=== PATIENT | male | born 1990 | race Caucasian/White ===

== ENCOUNTER 2016-11-22 14:49 | Inpatient (IN) | payer OTHER ==
[~2016-11-22] VITALS: Ht 180.3 cm; Wt 70.3 kg
[~2016-11-22 14:49] MED LIST: ALBU18HF2 INH; Baclofen PO; CLON0.1T14 PO; DICY20TA28 PO; DIPH50CA37 PO; Gabapentin PO; HYDR-3895 PO; Ibuprofen PO
[2016-12-16 09:00] VITALS: BP 110/63
[2016-12-16] MEDS ORDERED: ONDANSETRON ODT 4 MG TAB.RAPDIS SL PRN (09:45)
[2016-12-16] MEDS ORDERED: DICYCLOMINE HCL 20 MG TABLET PO PRN (09:45)
[2016-12-16] MEDS ORDERED: MIRALAX 17 GM POWD.PACK PO PRN (09:45)
[2016-12-16] MEDS ORDERED: IBUPROFEN 600 MG TABLET PO PRN (09:45)
[2016-12-16] MEDS ORDERED: ALBUTEROL SULFATE 8 GM HFA.AER.AD INH PRN (09:45)
[2016-12-16] MEDS ORDERED: BUPRENORPHINE HCL 2 MG TAB.SUBL SL PRN (09:45)
[2016-12-16] MEDS ORDERED: ACETAMINOPHEN 325 MG TABLET PO PRN (09:45)
[2016-12-16] MEDS ORDERED: MAG HYDROX/AL HYDROX/SIMETH 30 ML LIQUID UDC PO PRN (09:45)
[2016-12-16] MEDS ORDERED: ONDANSETRON 4 MG/2 ML VIAL IM PRN (09:45)
[2016-12-16] MEDS ORDERED: LOPERAMIDE HCL 2 MG CAPSULE PO PRN ×2 (09:45)
[2016-12-16] MEDS ORDERED: diphenhydrAMINE 50 MG CAPSULE PO PRN (09:45)
[2016-12-16] MEDS ORDERED: MAGNESIUM HYDROXIDE 30 ML LIQUID UDC PO PRN (09:45)
[2016-12-16] MEDS ORDERED: HYDROXYZINE PAMOATE 25 MG CAPSULE PO PRN (09:45)
[2016-12-16] MEDS ORDERED: CLONIDINE HCL 0.1 MG TABLET PO PRN (09:45)
--- NOTE | 2016-12-16 10:35 | NUR ---
Admission Note VS: BP- 110/63 HR- 83 O2- 96% RR-16 Temp- 97.5 Pain 0/10 Height: 5'11" Weight: 155 lbs Allergies: LILIAN Patient is a 26 year old male admitted to [facility] on 12/16/16 at 0930. Pt is under the care of Dr. Toussaint for heroin dependence. Pt denies suicidal and homicidal ideations at this time. Pt denies being hospitalized in the last 30 days. Pt denies chest pain and SOB. Upon assessment, patient has abrasions to right side of face,back of head, bilat hands, and upper back. Patient states he was running away from police and fell into a fence and got all of these abrasions. Cows 5 upon admission. Pt is AOx4 and able to answer questions necessary for admission process. Patient appears with flat affect and congruent mood. Pt is a full code. VS WNL, Regular diet. Pt denies seizure history. Pt denies having PCP. Breathing is even and unlabored, O2 96% room air. Pt ambulates with steady gait. Pt reports not sleeping last night and feeling very tired. Pt states he has a BM about every other day. Pt reports he is currently living at his friend's house. Pt smokes about a pack of cigarretes per day, Addendum: 12/16/16 at 1047 by KWAN LOW RN but is not interested in quitting at this time. Smoking cessation education still provided to pt. All needs have been met. Pt has been oriented to the room, unit, and staff. All safety measures are in place per hospital policy. Bed in lowest position, side rails up x2, call light within reach. Will Continue to monitor. Substance Abuse: Heroin: 3 grams daily for 8 months. Last used on 12/15/16 2.5 grams.
[2016-12-16] MEDS ORDERED: ALBUTEROL SULFATE 2.5 MG/3 ML NEBU NEB PRN (11:15)
[2016-12-16 11:17] LABS: BASOPHILS # (AUTO) 0.1 K/uL (0.0-0.2); BASOPHILS % (AUTO) 0.8 % (0.0-2.0); EOSINOPHILS # (AUTO) 0.5 K/uL (0.0-0.7); HEMATOCRIT 44.1 % (40.0-50.0); HEMOGLOBIN 15.4 g/dL (14.0-18.0); LYMPHOCYTES # (AUTO) 1.5 K/uL (0.8-4.8); LYMPHOCYTES % (AUTO) 21.4 % (20.5-51.5); MEAN CORPUSCULAR HEMOGLOBIN 30.9 uug (27.0-31.0); MEAN CORPUSCULAR HGB CONC 35 g/dL (32.0-37.0); MEAN CORPUSCULAR VOLUME 88.4 fL (82.0-92.0); MONOCYTES # (AUTO) 0.8 K/uL (0.1-1.30); MONOCYTES % (AUTO) 10.9 % (0.0-11.0); NEUTROPHILS # (AUTO) 4.1 K/uL (1.8-8.9); NEUTROPHILS % (AUTO) 59.9 % (38.5-71.5); PLATELET COUNT (AUTO) 202 K/uL (150-450); RED BLOOD CELL COUNT(AUTO) 4.99 MIL/uL (4.70-6.10)
[2016-12-16 11:28] LABS: ALANINE AMINOTRANSFERASE 179 U/L (16-63); ALBUMIN 3.3 g/dL (3.4-5.0); ALKALINE PHOSPHATASE 111 U/L (50-136); ASPARTATE AMINOTRANSFERASE 105 U/L (15-37); CALCIUM 8.7 mg/dL (8.5-10.1); CHLORIDE 100 mmol/L (98-107); GFR 92 mL/min (>60); GLUCOSE 89 mg/dL (74-106); POTASSIUM 3.1 mmol/L (3.5-5.1); SODIUM SERUM 138 mmol/L (136-145); TOTAL PROTEIN, SERUM 6.9 g/dL (6.4-8.2); UREA NITROGEN, BLOOD 20 mg/dL (7-18)
[2016-12-16 11:36] LABS: CARBON DIOXIDE 35 mmol/L (21-32)
[2016-12-16 11:38] LABS: THYROID STIMULATING HORMONE 0.668 mIU/mL (0.358-3.740)
--- NOTE | 2016-12-16 11:58 | NUR ---
LABS K+= 3.[address] Toussaint made aware.
[2016-12-16 12:00] VITALS: BP 101/57
[2016-12-16 12:08] LABS: ETHANOL < 5 MG/DL (0-0)
[2016-12-16] MEDS: NEOMY/BACITRAC/POLYMI OINT 28.35 GM TUBE TOP SCH ×2 (12:16→16:38)
--- NOTE | 2016-12-16 12:30 | NUR ---
IV START IV line started per Dr order. 22 gauge placed Right AC. No site complications. IV site flushed and secured with transparent dressing.
[2016-12-16 12:58] LABS: HIV-1 p24 ANTIGEN NON REACTIVE (NONREACTIVE); HIV-1/2 ANTIBODY NON REACTIVE (NONREACTIVE)
[2016-12-16] MEDS: POTASSIUM CHLORIDE 20 MEQ in IV D5 1/2 NS 1000 ML 1,000 ML IV SCH ×2 (12:59→21:13)
--- NOTE | 2016-12-16 14:00 | NUR ---
COWS DEFERRED PATIENT SLEEPING. RESPIRATIONS EVEN AND UNLABORED. RR 14. BED LOCKED AND IN LOWEST POSITION. CALL LIGHT IN REACH. WILL CONTINUE TO MONITOR.
[2016-12-16] MEDS: GABAPENTIN 300 MG CAPSULE PO SCH ×2 (14:40→20:52)
[2016-12-16 16:00] VITALS: BP 101/54
--- NOTE | 2016-12-16 18:40 | NUR ---
END OF SHIFT Admitted pt this AM for heroin dependence. Patient has been sleeping since arrival to unit and states he did not get sleep last night and is very tired. Pt is aox4 when awake. Pt is compliant with medications and vital signs. COWS 5 on admission, other COWS deferred due to patient being asleep. Patient unable to provide UDS since admission and is aware he needs to provide us with it. Endorsed this to oncoming nurse. Patient currently sleeping with respirations even and unlabored. RR 14. Bed locked and in lowest position. Call hancock in reach. Will pass report to night nurse.
[2016-12-16 20:00] VITALS: BP 95/64
--- NOTE | 2016-12-16 20:00 | NUR ---
START OF SHIFT NOTE PATIENT IN THE ROOM. RESTING. PATIENT REPORTS GENERALIZED BODY ACHES . NO N/V, ANXIOUS, STUFFY NOSE AND RESTLESS LEGS. RECEIVED REPORT FROM DAY SHIFT NURSE. PATIENT IS A 26 YEAR OLD MALE, NEWLY ADMITTED ON 12/16/16 FOR SUBSTANCE DEPENDENCE. PATIENT IS FULL CODE, REGULAR DIET AND NO KNOWN ALLERGY. PATIENT WAS PLACED ON 4 DAYS SUBUTEX TAPER TO START TOMORROW. PATIENT DENIES ANY PAST MEDICAL HISTORY. PATIENT INJECTS 3 GRAMS FOR 8 MONTHS. ON FALL PRECAUTION. PATIENT WITH MULTIPLE ABRASION ON FACE,BACK OF NECK AND LEFT HAND. PATIENT IS ON POTASSIUM CHLORIDE 20 Meq in IV D5 1/2 NS 1000 ML AT 125 MLS/HR ON RIGHT AC. POTASSIUM LEVEL 3.1. PATIENT DID NOT REQUIRE ANY PRN MEDICATION DURING THE DAY. LAST COWS 5. SAFETY MEASURES IN PLACE. CALL LIGHT IN REACH. WILL CONTINUE TO MONITOR.
[2016-12-16] MEDS: METHOCARBAMOL 750 MG TABLET PO PRN (20:52)
--- NOTE | 2016-12-16 20:52 | NUR ---
PRN BENADRYL, ROBAXIN, VISTARIL ADMINISTRATION PATIENT REQUEST FOR SLEEP AID, C/O RESTLESS LEGS AND ANXIETY. PRN ROBAXIN, BENADRYL AND VISTARIL GIVEN. WILL MONITOR FOR EFFECTIVENESS.
--- NOTE | 2016-12-16 22:00 | NUR ---
PRN VISTARIL/BENADRYL AND ROBAXIN RE-ASSESSMENT PATIENT IN BED ASLEEP. RESPIRATION EVEN AND UNLABORED. NO S/S OF DISTRESS. WILL CONTINUE TO MONITOR
[2016-12-17] VITALS (7 sets, daily range): BP systolic 90–108; BP diastolic 47–62
[2016-12-17] MEDS: POTASSIUM CHLORIDE 20 MEQ in IV D5 1/2 NS 1000 ML 1,000 ML IV SCH (05:37)
--- NOTE | 2016-12-17 07:09 | NUR ---
END OF SHIFT NOTE PATIENT REPORTS GENERALIZED BODY ACHES . NO N/V, ANXIOUS, STUFFY NOSE AND RESTLESS LEGS. RECEIVED REPORT FROM DAY SHIFT NURSE. PATIENT IS A 26 YEAR OLD MALE, NEWLY ADMITTED ON 12/16/16 FOR SUBSTANCE DEPENDENCE. PATIENT IS FULL CODE, REGULAR DIET AND NO KNOWN ALLERGY. PATIENT WAS PLACED ON 4 DAYS SUBUTEX TAPER TO START TODAY. PATIENT DENIES ANY PAST MEDICAL HISTORY. PATIENT INJECTS 3 GRAMS FOR 8 MONTHS. ON FALL PRECAUTION. PATIENT WITH MULTIPLE ABRASION ON FACE,BACK OF NECK AND LEFT HAND. PATIENT IS ON POTASSIUM CHLORIDE 20 Meq in IV D5 1/2 NS 1000 ML AT 125 MLS/HR ON RIGHT AC. POTASSIUM LEVEL 3.1. PATIENT IN ROOM MOST OF THE SHIFT. PATIENT WAS GIVEN PRN BENADRYL FOR SLEEP, ROBAXIN RESTLESS LEGS AND VISTARIL FOR ANXIETY AT 2051, ALL EFFECTIVE. LAST COWS 1. SAFETY MEASURES IN PLACE. CALL LIGHT IN REACH. WILL CONTINUE TO MONITOR. SLEPT 10 HOURS. FLUID INTAKE 250 ML. VOIDED X 0 .NO BM.
--- NOTE | 2016-12-17 07:27 | NUR ---
END OF SHIFT NOTE PATIENT ALERT AND ORIENTED X 4. RESPIRATION EVEN AND UNLABORED. PATIENT C/O ANXIETY BUT MEDICATION IS WORKING WELL IN CONTROLLING HIS WITHDRAWAL SYMPTOMS. SWEATING. NO N/V.PATIENT IS ON 2ND DAY OF HIS 5 DAY SUBUTEX AND 5 DAY VALIUM TAPER FOR OPIATE/ BENZO DEPENDENCE.PATIENT IS ATTENDING AND PARTICIPATING IN GROUPS. COMPLIANT WITH MEDICATIONS AND TREATMENT PLAN. PATIENT DID NOT REQUIRE ANY PRN MEDICATION DURING THE DAY. LAST CIWA 1 AND COWS 1. SKIN INTACT. ON FALL/SEIZURE PRECAUTION. SAFETY MEASURES IN PLACE. CALL LIGHT IN REACH. WILL CONTINUE TO MONITOR. SLEPT 6 HOURS. FLUID INTAKE 1,350 ML. VOIDED X 2. NO BM. Addendum: 12/17/16 at 0763 by KALEB ALVARADO LVN ERROR :CHARTING IS FOR ANOTHER PATIENT
--- NOTE | 2016-12-17 07:53 | NUR ---
START OF SHIFT Pt 26 y/o male admitted for substance abuse. Pt received in room on bed with eyes closed resting, but easily arousable to name. Perrla. Skin warm and slightly moist to touch. Respirations even and unlabored. Peripheral IV on right forearm 22g intact and in place with no redness or infiltration noted, and is infusing K+ D5 1/2 @ 125mL/hr and is tolerating well. Pt was able to provide to urine for UDS. It was reported that pt slept for 10 hours last night. Bed on lowest position with side rails x2 up for safety. Call light within reach. No distress noted at this time.
[2016-12-17 08:29] LABS: ALBUMIN 2.8 g/dL (3.4-5.0); BILIRUBIN,DIRECT 0.1 mg/dL (0.0-0.2); BILIRUBIN,TOTAL 0.6 mg/dL (0.2-1.0); CALCIUM 8.3 mg/dL (8.5-10.1); CREATININE 0.9 mg/dL (0.6-1.3); MAGNESIUM 1.9 mg/dL (1.8-2.4); PHOSPHOROUS 2.9 mg/dL (2.5-4.9); TOTAL PROTEIN, SERUM 6.2 g/dL (6.4-8.2)
[2016-12-17] MEDS ORDERED: TUBERCULIN,PURIF.PROT.DERIV. 5 TU/0.1 ML TEST ID ONE (09:00)
[2016-12-17] MEDS: NEOMY/BACITRAC/POLYMI OINT 28.35 GM TUBE TOP SCH ×2 (09:00→17:21)
[2016-12-17 09:07] LABS: HCV AB >11.0 s/co ratio (0.0-0.9); HEPATITIS B CORE AB, IgM Negative (Negative); HEPATITIS B SURFACE AG Negative (Negative)
[2016-12-17 09:36] LABS: *AMPHETAMINE, URINE POSITIVE (NEGATIVE); *BARBITURATE, URINE NEGATIVE (NEGATIVE); *CANNABINOID, URINE NEGATIVE (NEGATIVE); *COCCAINE, URINE NEGATIVE (NEGATIVE); *OPIATE, URINE POSITIVE (NEGATIVE); *PHENCYCLIDINE SCREEN,URINE NEGATIVE (NEGATIVE)
[2016-12-17] MEDS: MULTIVITAMINS,THERAPEUTIC TABLET PO SCH (10:02)
[2016-12-17] MEDS: GABAPENTIN 300 MG CAPSULE PO SCH ×3 (10:02→20:57)
[2016-12-17] MEDS: BUPRENORPHINE HCL 2 MG TAB.SUBL SL SCH ×3 (10:02→20:58)
--- NOTE | 2016-12-17 11:23 | NUR ---
1:1 Pt observed with slightly unsteady gait. Pt also stated he felt dizzy and lightheaded after getting up from bed. Pt seen by Dr. Toussaint with new orders for 1:1 sitter to monitor for safety.
[2016-12-17] MEDS: IV NS 1000 ML 1,000 ML IV PRN (14:30)
[2016-12-17] MEDS: METHOCARBAMOL 750 MG TABLET PO PRN (17:51)
--- NOTE | 2016-12-17 17:54 | NUR ---
PRN Pt states 7/10 pain of right arm. Robaxin po prn per MD order given and tolerated well.
--- NOTE | 2016-12-17 18:00 | NUR ---
END OF SHIFT Pt 26 y/o male admitted for substance dependence. Pt alert and oriented to name, place, and time. Perrla. Respirations even and unlabored. Skin warm and slightly moist to touch. Bilateral hand tremors noted. Pt states he had episodes of chills and sweats throughout the day. Peripheral IV on right arm 22g intact, patent, and in place, with no redness or infiltration noted, and is infusing NS @120mL/hr, and is tolerating well. Pt with sitter 1:1 to monitor for safety. Pt observed in room throughout the day. Pt did not attend group activity. Pt medication compliant and tolerated well. Bed on lowest position with side rails x2 up for safety. Call light within reach. No distress noted at this time.
[2016-12-17] MEDS: ESCITALOPRAM OXALATE 10 MG TABLET PO SCH (18:23)
--- NOTE | 2016-12-17 19:55 | NUR ---
START OF SHIFT Received report from day shift nurse. Pt is lying in bed resting with a 1:[address] for safety due to unsteady gait. He is a 26 yo male admitted to [facility] on 12/16 for Opiate dependence. Pt is A&O x4 and ambulatory with minimal assistance. NKA, full code, regular diet. He has a 22 gauge IV to the right forearm that is patent and intact. He is receiving IV fluids for rehydration. He has a medical history of hepatitis C. He has a raised painful area on the right wrist. MD aware. PO abx ordered. On admission he admitted to using heroin IV 3 grams per day for 8 months. He reports left wrist pain, generalized body aches, headache, nasal stuffiness. Pt has moist, flush skin and tremors that can be felt. He started a 5 day subutex taper on 12/16 for the management of withdrawal symptoms. Fall precautions in place. Bed is down with call light in reach.
[2016-12-17] MEDS: DOXYCYCLINE HYCLATE 100 MG TABLET PO SCH (20:57)
--- NOTE | 2016-12-17 21:00 | NUR ---
PRN Motrin administration Pt reports right wrist pain r/t abscess and headache. PRN Motrin administered.
--- NOTE | 2016-12-17 22:00 | NUR ---
PRN Motrin reassessment PRN Motrin effective. Pt reports headache is relieved and wrist pain is mild. He denies the need for any other medication
[2016-12-18] VITALS: BP 104/50
[2016-12-18] MEDS: IV NS 1000 ML 1,000 ML IV PRN (00:19)
[2016-12-18 04:00] VITALS: BP 109/67
--- NOTE | 2016-12-18 07:12 | NUR ---
END OF SHIFT Report provided to day shift nurse. Pt is lying in bed resting with a 1:[address] for safety due to unsteady gait. He is a 26 yo male admitted to [facility] on 12/16 for Opiate dependence. Pt is A&O x4 and ambulatory with minimal assistance. NKA, full code, regular diet. He has a 22 gauge IV to the right wrist that is patent and intact. He is receiving IV NS @ 120mL/hr for hydration. He has a medical history of hepatitis C. He has a raised painful area on the right wrist. MD aware. PO abx ordered. On admission he admitted to using heroin IV 3 grams per day for 8 months. Pt started a 5 day subutex taper on 12/16 for the management of withdrawal symptoms. PRN Motrin administered. Last COWS 6. He drank 855mL and received IV NS @ 120mL/hr. Pt slept for 8 hours. Fall precautions in place. Bed is down with call light in reach.
--- NOTE | 2016-12-18 07:15 | NUR ---
Start of Shift Received report from operations supervisor 2nd shift nurse. Pt is a 26 year old male admitted to the [facility] on 12/16/16 for Opiate dependence. Pt is full code regular diet, regular diet on fall precautions denies any food or drug allergies. Pt placed on a 5 day Subutex taper tolerating well. He has a 22 gauge IV to the right forearm that is patent and intact. He is receiving IV fluids for rehydration. He has PMH of hepatitis C. He has a raised painful area on the right wrist. aware. Pt is on PO antibiotics. Pt also has scabs located on right cheek and right side of the neck. Pt received PRN Motrin at night which was effective per operations supervisor 2nd shift nurse. Pt slept a total of 8 hours last night. Pt is currently in his room laying in bed watching TV. All safety measures in place per hospital policy. Bed in lowest position, side rails up x2, call-light within reach. Will continue to monitor and provide support.
[2016-12-18] MEDS: MULTIVITAMINS,THERAPEUTIC TABLET PO SCH (08:28)
[2016-12-18] MEDS: METHOCARBAMOL 750 MG TABLET PO PRN (08:28)
[2016-12-18] MEDS: DOXYCYCLINE HYCLATE 100 MG TABLET PO SCH ×2 (08:28→20:53)
[2016-12-18] MEDS: GABAPENTIN 300 MG CAPSULE PO SCH ×3 (08:28→20:53)
[2016-12-18] MEDS: ESCITALOPRAM OXALATE 10 MG TABLET PO SCH (08:28)
[2016-12-18 08:32] VITALS: BP 115/72
[2016-12-18] MEDS: NEOMY/BACITRAC/POLYMI OINT 28.35 GM TUBE TOP SCH ×2 (08:32→17:00)
[2016-12-18] MEDS ORDERED: BUPRENORPHINE HCL 2 MG TAB.SUBL SL SCH (09:00)
--- NOTE | 2016-12-18 10:53 | NUR ---
communication Upon assessment Dr. Toussaint placed an ordered to discontinue patient from the 1:1 as well as his saline lock. All orders completed, pt is no longer on a 1:1 and his IV has been removed. All needs met all safety measures in place will continue to monitor.
[2016-12-18 12:00] VITALS: BP 119/65
[2016-12-18] MEDS: FLUTICASONE PROP NASAL SPRAY 16 GM BOTTLE NS SCH (13:50)
[2016-12-18] MEDS: CLONIDINE HCL 0.1 MG TABLET PO SCH ×2 (14:13→20:53)
[2016-12-18] MEDS: BACLOFEN 10 MG TABLET PO SCH ×2 (14:13→20:54)
[2016-12-18] MEDS: BUPRENORPHINE HCL 2 MG TAB.SUBL SL SCH ×2 (14:14→20:54)
[2016-12-18] MEDS: DICYCLOMINE HCL 20 MG TABLET PO SCH ×2 (15:00→20:53)
[2016-12-18 16:00] VITALS: BP 106/60
--- NOTE | 2016-12-18 19:15 | NUR ---
START OF SHIFT Received 26 year old male patient admitted on 12/16/16 for Heroin dependency. Pt is full code with NKA. He reports a PMHx of Hep C. He reports using Heroin IV 3 gram daily for 6 months. Last dose was 2.5 gram on 12/15/16. He is placed on 5 day Subutex taper and tolerating well. Per endorsement, pt with right wrist abscess and being treated with PO ATB. He did not receive or request PRN medications. Pt is alert and oriented x4, breathing is even and unlabored, safety measures in place. Will continue to monitor.
--- NOTE | 2016-12-18 19:23 | NUR ---
End of Shift Pt is a 26 year old male admitted to [facility] on 12/16/16 for Opiate dependence. Pt is full code regular diet, on fall precautions denies any food or drug allergies. Pt placed on a 5 day Subutex taper tolerating well. His 22 gauge IV to the right forearm was discontinued . He has PMH of hepatitis C. He has a raised painful area on the right wrist. MD aware. Pt is on PO antibiotics. Pt also has scabs located on right cheek and right side of the neck. Pts 1:1 has been discontinued per MD order. Pt did not receive any PRN medications during the day. Treatment plan tolerated well by the patient as evidenced by ptst last COWS score of 4 which was taken at 1600. Pt participated in some activities and groups. Pt ate all of his meals. Pt remains compliant with the treatment plan. Pts vital signs within normal limits, A/Ox4, denies chest pain. Respirations even unlabored, lungs clear upon auscultation abdomen soft and non- distended. Pt denies nausea, vomiting and diarrhea. Pt total fluid intake was 1596ml with 2 voids and 1 stool. Safety measures in place, call light within reach. All pertinent information discussed with internet marketing consultant, endorsement given to internet marketing consultant nurse.
[2016-12-18 20:00] VITALS: BP 97/64
[2016-12-19] VITALS: BP 95/60
[2016-12-19 04:00] VITALS: BP 101/54
--- NOTE | 2016-12-19 04:00 | NUR ---
COWS DEFERRED COWS deferred d/t order is Q4H while awake. Pt noted to be lying in bed with eyes closed and is asleep. Respirations 16, breathing is even and unlabored, safety measures in place. Will continue to monitor.
--- NOTE | 2016-12-19 07:10 | NUR ---
END OF SHIFT Pt remained stable. Pt had uneventful night. He did not receive or request PRN medications. Pt continues on PO antibiotic for right wrist abscess and tolerating well. He slept a total of 8 hrs, Intake: 500 mL, Void: x2, BM:0. COWS:4. Pt remains alert and oriented x4, breathing is even and unlabored, safety measures in place. Will endorse to oncoming shift.
--- NOTE | 2016-12-19 07:11 | NUR ---
Start of Shift Patient Received from date night caregiver nurse. Patient is a 60 year old male, admitted on 12/13/16 for ETOH Dependence, under the care of Dr. Toussaint. Pt is full code regular diet on fall and seizure precautions denies any food or drug allergies. Patient is currently receiving a 5 day Ativan taper tolerating well. Reports PMH of Depression, Anxiety, Anemia, Obesity, Shingles less than one month ago, ARF, Insomnia, Cholelithiasis, and lactose intolerance. Treatment plan tolerated well by the patient as evidenced by pt's last CIWA score of 5 which was taken at 0400. Pt received PRN Motrin and Tylenol for general body aches and tooth pain which were effective per date night caregiver nurse. Pt has a new scheduled medication Lidoderm patch that's placed on his left upper back and to be removed HS. Pt is currently in his room laying in bed watching TV. All safety measures in place per hospital policy. Bed in lowest position, side rails up x2, call-light within reach. Will continue to monitor and provide support. Addendum: 12/19/16 at 0801 by ALEXIS GARCIA RN WRONG PATIENT, ERROR IN CHARTING.
--- NOTE | 2016-12-19 07:12 | NUR ---
Start of Shift Received report from fox farmer nurse. Pt is a 26 year old male admitted to [facility] on 12/16/16 for Opiate dependence. Pt is full code regular diet, regular diet on fall precautions denies any food or drug allergies. Pt placed on a 5 day Subutex taper tolerating well. Reports PMH of hepatitis C. He has abscess on his right wrist. aware. Pt is currently on PO antibiotics. Pt also has scabs located on his right cheek and right side of the neck. Pt did not received PRN medications last night.Treatment plan tolerated well by the patient as evidenced by pt's last COWS score of 5 which was taken at 0400. Pt slept a total of 8 hours last night. Pt is currently in his room laying in bed watching TV. All safety measures in place per hospital policy. Bed in lowest position, side rails up x2, call-light within reach. Will continue to monitor and provide support.
[2016-12-19 08:00] VITALS: BP 113/61
[2016-12-19] MEDS: GABAPENTIN 300 MG CAPSULE PO SCH ×2 (09:34→15:19)
[2016-12-19] MEDS: CLONIDINE HCL 0.1 MG TABLET PO SCH ×3 (09:34→21:50)
[2016-12-19] MEDS: MULTIVITAMINS,THERAPEUTIC TABLET PO SCH (09:34)
[2016-12-19] MEDS: FLUTICASONE PROP NASAL SPRAY 16 GM BOTTLE NS SCH (09:34)
[2016-12-19] MEDS: BACLOFEN 10 MG TABLET PO SCH ×3 (09:35→21:50)
[2016-12-19] MEDS: BUPRENORPHINE HCL 2 MG TAB.SUBL SL SCH ×3 (09:35→21:56)
[2016-12-19] MEDS: ESCITALOPRAM OXALATE 10 MG TABLET PO SCH (09:35)
[2016-12-19] MEDS: DICYCLOMINE HCL 20 MG TABLET PO SCH ×3 (09:35→21:49)
[2016-12-19] MEDS: DOXYCYCLINE HYCLATE 100 MG TABLET PO SCH ×2 (09:35→21:50)
[2016-12-19] MEDS: NEOMY/BACITRAC/POLYMI OINT 28.35 GM TUBE TOP SCH ×2 (09:36→17:00)
[2016-12-19 12:00] VITALS: BP 124/70
[2016-12-19] MEDS ORDERED: BUPRENORPHINE HCL 2 MG TAB.SUBL SL ONE (13:00)
[2016-12-19 16:00] VITALS: BP 119/72
[2016-12-19] MEDS: BOOST PLUS 237 ML LIQUID (RICH CHOCOLATE) PO SCH (18:27)
--- NOTE | 2016-12-19 19:03 | NUR ---
End of Shift Pt is a 26 year old male admitted to [facility] on 12/16/16 for Opiate dependence. Pt placed on a 5 day Subutex taper tolerating well. He has PMH of hepatitis C. He has a raised painful area on the right wrist. aware. Pt is on PO antibiotics. Pt also has scabs located on right cheek and right side of the neck he has triple antibiotic cream for the scabs.Pt did not receive any PRN medications during the day pt received onetime order of Subutex 4 mg.Treatment plan tolerated well by the patient as evidenced by pt's last COWS score of 3 which was taken at 1600. Pt participated in some activities and groups. Pt ate all of his meals. Pt remains compliant with the treatment plan. Pts vital signs within normal limits, A/Ox4, denies chest pain. Respirations even unlabored, lungs clear upon auscultation abdomen soft and non- distended. Pt denies nausea, vomiting and diarrhea. Pt total fluid intake was 1355ml with 3 voids and 1 stool. Safety measures in place, call light within reach. All pertinent information discussed with veterinary hospital shift lead, endorsement given to veterinary hospital shift lead nurse.
--- NOTE | 2016-12-19 19:15 | NUR ---
START OF SHIFT Received 26 year old male patient admitted on 12/16/16 for Heroin dependency. Pt is full code with NKA. He reports a PMHx of Hep C. He is placed on 5 day Subutex taper started on 12/16/16 and tolerating well. Pt with right wrist abscess being treated with PO ATB. Per endorsement, he received a one time Subutex 4 mg, which was effective. Pt is alert and oriented x4, breathing is even and unlabored, safety measures in place. Will continue to monitor.
[2016-12-19 20:00] VITALS: BP 106/64
[2016-12-19] MEDS ORDERED: GABAPENTIN 300 MG CAPSULE PO SCH (21:00)
[2016-12-20] VITALS: BP 95/63
[2016-12-20 04:00] VITALS: BP 105/61
--- NOTE | 2016-12-20 04:00 | NUR ---
COWS DEFERRED COWS deferred d/t order is Q4H while awake. Pt noted to be lying in bed with eyes closed and is asleep. Respirations 16, breathing is even and unlabored, safety measures in place. Will monitor.
--- NOTE | 2016-12-20 07:06 | NUR ---
END OF SHIFT Pt remained stable and had uneventful night. He continues on Subutex taper and tolerating well. He did not receive or request for PRN medications during shift. He slept a total of 8 hrs, intake:560 mL void: x1 BM: 0 COWS: 4 at 2200. Pt remains alert and oriented x4, breathing is even and unlabored, safety measures in place. Endorsed to oncoming shift.
[2016-12-20 08:00] VITALS: BP 103/61
--- NOTE | 2016-12-20 08:00 | NUR ---
START OF SHIFT Pt 26 y/o male admitted for substance dependence. Pt received in room with eyes closed resting, but easily arousable to name. Pt alert and oriented to name, place, and time. Perrla. Skin warm and slightly moist to touch. Respirations even and unlabored. Bilateral hand tremors noted slightly. It was reported that pt slept for 8 hours last night. Pt is on a 5 day subutex taper. Bed on lowest position with side rails x2 up for safety. Call light within reach. No distress noted at this time.
[2016-12-20] MEDS: BOOST PLUS 237 ML LIQUID (RICH CHOCOLATE) PO SCH ×3 (08:47→17:00)
[2016-12-20] MEDS: BACLOFEN 10 MG TABLET PO SCH ×3 (08:48→21:08)
[2016-12-20] MEDS: DOXYCYCLINE HYCLATE 100 MG TABLET PO SCH ×2 (08:48→21:09)
[2016-12-20] MEDS: ESCITALOPRAM OXALATE 10 MG TABLET PO SCH (08:48)
[2016-12-20] MEDS: GABAPENTIN 300 MG CAPSULE PO SCH ×3 (08:49→21:08)
[2016-12-20] MEDS: CLONIDINE HCL 0.1 MG TABLET PO SCH ×3 (08:49→21:08)
[2016-12-20] MEDS: MULTIVITAMINS,THERAPEUTIC TABLET PO SCH (08:49)
[2016-12-20] MEDS: DICYCLOMINE HCL 20 MG TABLET PO SCH ×3 (08:49→21:09)
[2016-12-20] MEDS: FLUTICASONE PROP NASAL SPRAY 16 GM BOTTLE NS SCH (08:50)
[2016-12-20] MEDS: NEOMY/BACITRAC/POLYMI OINT 28.35 GM TUBE TOP SCH ×2 (08:50→17:00)
[2016-12-20] MEDS ORDERED: BUPRENORPHINE HCL 2 MG TAB.SUBL SL SCH ×2 (09:00→15:00)
--- NOTE | 2016-12-20 10:00 | NUR ---
NSG ENTRY Pt observed in room watching television on bed. No distress noted at this time.
--- NOTE | 2016-12-20 11:00 | NUR ---
NSG ENTRY pt seen by Dr. Toussaint.
[2016-12-20 12:00] VITALS: BP 102/73
[2016-12-20 16:00] VITALS: BP 108/47
--- NOTE | 2016-12-20 18:29 | NUR ---
START OF SHIFT NOTE Patient endorsed by outgoing shift nurse. SBAR report received. Patient is a 26 years old male admitted to [facility] on 12/16/2016 for Opioid Dependence, placed on 4 Day Subutex taper. Patient remains complained with treatment plan, medications, and diet regime. NKA, Regular Diet, Full Code, Fall Precautions. Patient denied History of Seizures. Patient denied HI/SI. Past Medical History: Hepatitis C, Substance Use. Patient reported that he use Heroin via IV 3 grams daily during 8 months. Last amount of 2,5 grams was used 12/15/2016. Past hospitalizations/Treatment History: [facility]: one month ago: > 30 days. [facility]: one month ago: > 30 days. Upon assessment patient is alert and oriented x4, speech is clear. COWS 6. Patient c/o increase anxiety, sweats, restlessness, bone and joint aches, stomach cramps. VS: T: 98.3; HR: 70; BP: 110/65; Room Air O2Sat: 95%; RR: 18. Breathing is unlabored and even. Lungs Sounds are clear. BS is active in all x 4 quadrants; Skin is warm and moist by touch. Patient has multiple old abrasion on face, back of neck, and left hand. No open wounds. Patient was educated for safety issues: keep bed in lowest position and locked, rails up x2. Patient returned his Knowledge back by verbalized understanding. All Safety met by hospital policy: Call Light within reach; Bed in lowest position and locked, rails up x2. Will continue to monitor. Addendum: 12/21/16 at 0518 by ELE BERKOWITZ RN Patient remains complaint with treatment plan, medications, and diet regime.
--- NOTE | 2016-12-20 18:29 | NUR ---
END OF SHIFT Pt 26 y/o male admitted for substance dependence. Pt alert and oriented to name, place, and time. Perrla. Respirations even and unlabored. Skin warm and slightly moist to touch. Bilateral hand tremors noted. Pt states he had some episodes of chills and sweats today. Pt observed in room throughout the day. Pt selective with group activity. Pt medication compliant and tolerated well. Bed on lowest position with side rails x2 up for safety. Call light within reach. No distress noted at this time.
[2016-12-20 20:00] VITALS: BP 120/65
[2016-12-21] VITALS: BP 92/53
[2016-12-21 04:00] VITALS: BP 105/51
--- NOTE | 2016-12-21 07:05 | NUR ---
END OF SHIFT NOTE Patient is a 26 years old male admitted to [facility] on 12/16/2016 for Opioid Dependence, placed on 4 Day Subutex taper. NKA, Regular Diet, Full Code, Fall Precautions. During my shift COWS decreased from 6 to 3. Patient presented with anxiety, restlessness, bone and joint aches, stomach cramps, perspiration. Patient remains compliant with treatment plan, medications and diet regime. VS at 04:00: T: 97.7; HR: 51; BP: 105/51; Room Air O2Sat: 97%; RR: 16. Breathing is unlabored and even. Skin is warm and moist by touch. Patient has multiple abrasion on face, back of neck, and left hand. Patient participated in the activities groups. No PRN Medications was administrated during my shift. Patient slept 9 hours; Intake: 1,151ml; Voided x1. All Safety met by hospital policy: Call Light within reach; Bed in lowest position and locked, rails up x2. Patient endorsed to day shift nurse in stable condition.. SBAR report given.
[2016-12-21 08:00] VITALS: BP 102/56
[2016-12-21] MEDS: BOOST PLUS 237 ML LIQUID (RICH CHOCOLATE) PO SCH ×3 (08:00→17:00)
--- NOTE | 2016-12-21 08:00 | NUR ---
START OF SHIFT Pt 26 y/o male admitted for substance dependence. Pt received in room with eyes closed resting, but easily arousable to name. Pt alert and oriented to name, place, and time. Perrla. Skin warm and slightly moist to touch. Respirations even and unlabored. Bilateral hand tremors noted slightly. Pt observed sniffling. Pt stated still experiences chills and sweats. It was reported that pt slept for 9 hours last night. Pt is on a 5 day subutex taper. Bed on lowest position with side rails x2 up for safety. Call light within reach. No distress noted at this time.
[2016-12-21] MEDS: FLUTICASONE PROP NASAL SPRAY 16 GM BOTTLE NS SCH (08:17)
[2016-12-21] MEDS: BACLOFEN 10 MG TABLET PO SCH ×3 (08:18→20:34)
[2016-12-21] MEDS: DOXYCYCLINE HYCLATE 100 MG TABLET PO SCH ×2 (08:18→20:34)
[2016-12-21] MEDS: GABAPENTIN 300 MG CAPSULE PO SCH ×4 (08:20→20:34)
[2016-12-21] MEDS: MULTIVITAMINS,THERAPEUTIC TABLET PO SCH (08:22)
[2016-12-21] MEDS: DICYCLOMINE HCL 20 MG TABLET PO SCH ×3 (08:22→20:34)
[2016-12-21] MEDS: CLONIDINE HCL 0.1 MG TABLET PO SCH ×3 (09:00→20:34)
[2016-12-21] MEDS ORDERED: BUPRENORPHINE HCL 2 MG TAB.SUBL SL SCH (09:00)
[2016-12-21] MEDS ORDERED: ESCITALOPRAM OXALATE 10 MG TABLET PO SCH (09:00)
[2016-12-21] MEDS: NEOMY/BACITRAC/POLYMI OINT 28.35 GM TUBE TOP SCH ×2 (10:31→17:18)
[2016-12-21 12:00] VITALS: BP 101/56
--- NOTE | 2016-12-21 13:00 | NUR ---
NSG ENTRY Pt in room sitting on bed. Pt with cows = 10. Pt with bilateral hand tremors noted. Pt states he experiences sweats and chills still. Pt also stated he still has a runny nose. Pt stated, " I don't feel right." Dr. Toussaint made aware and is here to see pt with new orders, noted and carried out.
[2016-12-21 13:39] LABS: *AMPHETAMINE, URINE NEGATIVE (NEGATIVE); *BARBITURATE, URINE NEGATIVE (NEGATIVE); *CANNABINOID, URINE NEGATIVE (NEGATIVE); *COCCAINE, URINE NEGATIVE (NEGATIVE); *OPIATE, URINE NEGATIVE (NEGATIVE); *PHENCYCLIDINE SCREEN,URINE NEGATIVE (NEGATIVE)
[2016-12-21] MEDS ORDERED: BUPRENORPHINE HCL 2 MG TAB.SUBL SL ONE (15:00)
[2016-12-21 16:00] VITALS: BP 128/52
[2016-12-21] MEDS ORDERED: KETOROLAC TROMETHAMINE 30 MG INJ IM PRN (17:15)
--- NOTE | 2016-12-21 18:08 | NUR ---
END OF SHIFT Pt 26 y/o male admitted for substance dependence. Pt alert and oriented to name, place, and time. Perrla. Respirations even and unlabored. Skin warm and slightly moist to touch. Bilateral hand tremors noted. Pt states he had some episodes of chills and sweats today. Pt observed in room throughout the day, was also in the patio in the afternoon. Pt selective with group activity. Pt medication compliant and tolerated well. No ASE noted. Bed on lowest position with side rails x2 up for safety. Call light within reach. No distress noted at this time.
--- NOTE | 2016-12-21 19:30 | NUR ---
Start of Shift Note: Patient is a 26 y/o male admitted for Opiate dependence. Patient reported using Heroin IV 3 grams daily for 8 months. Patient with medical history of Hepatitis C. No seizure history noted. Fall precautions. Patient is on a regular diet with no known food and drug allergies. Full Code status. Patient is on a 4-day Subutex taper and tolerating well. Last COWS is 6. No PRN medications given during day shift. Patient is alert &oriented x 4. No shortness of breath noted. Respiration even & unlabored. Abdomen soft & non-distended. Bowel sounds active in all four quadrants. No nausea/vomiting noted. Patient denies stomach cramps. Pt c/o sweating, chills, 6/10 knee and leg pain. Slight bilateral hand tremors noted. Patient denies SI/HI. Safety precautions in place. Will continue to monitor patient.
[2016-12-21 20:00] VITALS: BP 108/67
[2016-12-21] MEDS: BUPRENORPHINE HCL 2 MG TAB.SUBL SL SCH (20:34)
[2016-12-22] VITALS: BP 102/78
--- NOTE | 2016-12-22 07:07 | NUR ---
END OF SHIFT NOTE: Patient is a 26 y/o male admitted for Opiate dependence. Patient reported using Heroin IV 3 grams daily for 8 months. Patient with medical history of Hepatitis C. No seizure history noted. Fall precautions. Patient is on a regular diet with no known food and drug allergies. Full Code status. Patient is on an extended Subutex taper and tolerating well. Last COWS 5 CIWA 4. No PRN medications given to pt during my shift. Patient remained stable and vitals remains WNL. Pt slept for a total of 5 hours. Pt consumed 1292ml of fluids. Voided 3x with no bowel movement. All needs attended & met. Safety precautions are in place. Bed locked in lowest position. Both side rails up. Call light within pt's reach. Will continue to monitor patient.
--- NOTE | 2016-12-22 07:51 | NUR ---
START OF SHIFT Pt 26 y/o male admitted for substance dependence. Pt received awake, walking around in the hallway. Pt alert and oriented to name, place, and time. Perrla. Skin warm and slightly moist to touch. Respirations even and unlabored. Bilateral hand tremors noted slightly. It was reported that pt slept for 5 hours last night. Bed on lowest position with side rails x2 up for safety. Call light within reach. No distress noted at this time.
[2016-12-22 08:00] VITALS: BP 124/75
[2016-12-22] MEDS: BOOST PLUS 237 ML LIQUID (RICH CHOCOLATE) PO SCH ×3 (08:00→17:30)
[2016-12-22] MEDS: BUPRENORPHINE HCL 2 MG TAB.SUBL SL SCH (09:00)
[2016-12-22] MEDS: DOXYCYCLINE HYCLATE 100 MG TABLET PO SCH ×2 (09:00→21:29)
[2016-12-22] MEDS ORDERED: ESCITALOPRAM OXALATE 10 MG TABLET PO SCH (09:00)
[2016-12-22] MEDS: MULTIVITAMINS,THERAPEUTIC TABLET PO SCH (09:01)
[2016-12-22] MEDS: GABAPENTIN 300 MG CAPSULE PO SCH ×4 (09:01→21:29)
[2016-12-22] MEDS: BACLOFEN 10 MG TABLET PO SCH ×3 (09:01→21:28)
[2016-12-22] MEDS: CLONIDINE HCL 0.1 MG TABLET PO SCH ×3 (09:01→21:29)
[2016-12-22] MEDS: DICYCLOMINE HCL 20 MG TABLET PO SCH ×3 (09:01→21:28)
[2016-12-22] MEDS: NEOMY/BACITRAC/POLYMI OINT 28.35 GM TUBE TOP SCH ×2 (09:02→17:30)
[2016-12-22] MEDS: FLUTICASONE PROP NASAL SPRAY 16 GM BOTTLE NS SCH (09:03)
--- NOTE | 2016-12-22 10:00 | NUR ---
NSG ENTRY Pt observed in room on bed watching television.
[2016-12-22 12:00] VITALS: BP 140/55
[2016-12-22 12:22] LABS: *HCV QUANT 317500 IU/mL (.)
[2016-12-22] MEDS ORDERED: DICY20TA28 PO (15:13)
[2016-12-22] MEDS ORDERED: ESCI10TA PO (15:13)
[2016-12-22] MEDS ORDERED: Gabapentin PO (15:13)
[2016-12-22] MEDS ORDERED: Baclofen PO (15:13)
[2016-12-22] MEDS ORDERED: DIPH50CA37 PO (15:13)
[2016-12-22] MEDS ORDERED: CLON0.1T14 PO (15:13)
[2016-12-22] MEDS ORDERED: HYDR-3895 PO (15:13)
[2016-12-22] MEDS ORDERED: Ibuprofen PO (15:13)
[2016-12-22 16:00] VITALS: BP 95/52
[2016-12-22 16:30] VITALS: BP 107/58
--- NOTE | 2016-12-22 18:16 | NUR ---
END OF SHIFT Pt 26 y/o male admitted for substance dependence. Pt alert and oriented to name, place, and time. Perrla. Respirations even and unlabored. Skin warm and dry to touch. Bilateral hand tremors noted slightly. Pt is scheduled to be discharged tomorrow. Pt observed in room throughout the day, was also in the patio in the afternoon. Pt selective with group activity. Pt medication compliant and tolerated well. No ASE noted. Bed on lowest position with side rails x2 up for safety. Call light within reach. No distress noted at this time.
--- NOTE | 2016-12-22 19:30 | NUR ---
Start of Shift Note: Patient is a 26 y/o male admitted for Opiate dependence. Patient reported using Heroin IV 3 grams daily for 8 months. Patient with medical history of Hepatitis C. No seizure history noted. Fall precautions. Patient is on a regular diet with no known food and drug allergies. Full Code status. Patient completed his Subutex taper and he is scheduled to be discharge tomorrow. Urine drug screen collected and resulted. Last COWS is 3. No PRN medications given during day shift. Patient is alert &oriented x 4. No shortness of breath noted. Respiration even & unlabored. Abdomen soft & non-distended. Bowel sounds active in all four quadrants. No nausea/vomiting noted. Patient denies stomach cramps, sweating, chills. No complaints of pain/discomfort. Patient denies SI/HI. Safety precautions in place. Will continue to monitor patient.
[2016-12-22 19:48] LABS: *AMPHETAMINE, URINE NEGATIVE (NEGATIVE); *BARBITURATE, URINE NEGATIVE (NEGATIVE); *CANNABINOID, URINE NEGATIVE (NEGATIVE); *COCCAINE, URINE NEGATIVE (NEGATIVE); *OPIATE, URINE NEGATIVE (NEGATIVE); *PHENCYCLIDINE SCREEN,URINE NEGATIVE (NEGATIVE)
[2016-12-22 20:00] VITALS: BP 109/66
[2016-12-23] VITALS: BP 102/54
[2016-12-23 06:30] VITALS: BP 96/55
--- NOTE | 2016-12-23 07:30 | NUR ---
Discharge Note: Pt was admitted for Opiate dependence. Pt has a Recent CIWA of 1. VS are WNL. Denies any SI/HI. Pt verbalized his understanding of the discharge instructions. Pt has no further complaints at this time. Pt states that he feels ready for discharge. All belongings, prescriptions and discharge instructions given to pt. Pt ID band removed, pt left facility.
== END 2016-12-23 07:30 | disposition other institution (70) | DRG 895 ==
LOC: SRC 12-16 08:49
PROVIDERS: ADMIT Internal Medicine; ATTEND Internal Medicine
PROC: HZ2ZZZZ Detoxification Services for Substance Abuse Treatment (ICD-10-PCS; principal; 2016-12-16)
PROC: HZ31ZZZ Individual Counseling for Substance Abuse Treatment, Behavioral (ICD-10-PCS; principal; 2016-12-16)
PROC: HZ41ZZZ Group Counseling for Substance Abuse Treatment, Behavioral (ICD-10-PCS; 2016-12-22)
DX: F11.23 Opioid dependence with withdrawal (principal); E87.3 Alkalosis; F33.1 Major depressive disorder, recurrent, moderate; L03.113 Cellulitis of right upper limb; Z81.4 Family history of other substance abuse and dependence; E87.6 Hypokalemia; E86.0 Dehydration; J45.20 Mild intermittent asthma, uncomplicated; B19.20 Unspecified viral hepatitis C without hepatic coma; F17.210 Nicotine dependence, cigarettes, uncomplicated; E86.1 Hypovolemia; F14.21 Cocaine dependence, in remission; F41.9 Anxiety disorder, unspecified; F13.10 Sedative, hypnotic or anxiolytic abuse, uncomplicated
CPT/HCPCS: 36415; 70030-TC; 80307; 83735; 84100; 84443; 85025; 86592; 86705; 86803; 87340; 87521; 87806; 93005; A4663; G6040-TC; J3480; J3490; J3535; J7030; Q0163

== ENCOUNTER 2017-07-18 07:53 | Inpatient (IN) | payer OTHER ==
[~2017-07-18] VITALS: Ht 180.3 cm; Wt 72.6 kg
[~2017-07-18 07:53] MED LIST changes: +ESCI10TA PO
[2017-07-18 16:30] VITALS: BP 121/71
[2017-07-18] MEDS ORDERED: PATIENT MAY USE OWN MED- MD OK INH PRN (17:00)
[2017-07-18] MEDS ORDERED: MAGNESIUM HYDROXIDE 30 ML LIQUID UDC PO PRN (17:00)
[2017-07-18] MEDS ORDERED: MAG HYDROX/AL HYDROX/SIMETH 30 ML LIQUID UDC PO PRN (17:00)
[2017-07-18] MEDS ORDERED: DICYCLOMINE HCL 20 MG TABLET PO PRN (17:00)
[2017-07-18] MEDS ORDERED: ONDANSETRON 4 MG/2 ML VIAL IM PRN (17:00)
[2017-07-18] MEDS ORDERED: ACETAMINOPHEN 325 MG TABLET PO PRN (17:00)
[2017-07-18] MEDS ORDERED: diphenhydrAMINE 50 MG CAPSULE PO PRN (17:00)
[2017-07-18] MEDS ORDERED: MIRALAX 17 GM POWD.PACK PO PRN (17:00)
[2017-07-18] MEDS ORDERED: LORAZEPAM 1 MG TABLET PO PRN ×2 (17:00)
[2017-07-18] MEDS ORDERED: BUPRENORPHINE HCL 2 MG TAB.SUBL SL PRN (17:00)
[2017-07-18] MEDS ORDERED: LOPERAMIDE HCL 2 MG CAPSULE PO PRN ×2 (17:00)
[2017-07-18] MEDS ORDERED: METHOCARBAMOL 750 MG TABLET PO PRN (17:00)
[2017-07-18] MEDS ORDERED: ONDANSETRON ODT 4 MG TAB.RAPDIS SL PRN (17:00)
[2017-07-18] MEDS ORDERED: LORAZEPAM 2 MG/1 ML VIAL IM PRN (17:00)
[2017-07-18] MEDS ORDERED: CLONIDINE HCL 0.1 MG TABLET PO PRN (17:00)
--- NOTE | 2017-07-18 18:30 | NUR ---
ADMISSION NOTE 27 year old male admitted to [facility] on 07/18/17 at 1656 for Heroin, Meth and ETOH dependence and medically supervised detox. Pt is visibly in moderate pain, reports general body aches 5/10, pt also drowsy. Escorted to room 302 where assessment completed. Pt is primary source of information. Pt drowsy, oriented x 4, speech coherent, blunt/flat affect, cooperative. Denies having pneumonia vaccine in the past or the flu vaccine this year. Pt agrees to have both vaccines given to him during admission. Lives with his brother. Identifies brother and his aunt as his main support system as well as having 2 sober friends. He states drugs are ruining my life and that this admission will be different because he will follow through on his aftercare program. 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 Smokes 1 kaveh cigarettes per day. Given educational handout on smoking cessation, Hep C, substance abuse. Alos given educational material on common medication side effects. History of inpatient detox/rehab 4 months ago. No history of seizure. No medical history other than patient states he may have had MRSA in the past and he may have shared needles with someone with Hep C, but he has not been tested. States he brought prescriptions with him, states he takes Clonidine and Seroquel at home, but he does not remember the dosage. RN called Intake to recheck belongings for Pts prescriptions and medications were not brought up with patient. Skin check done, skin intact. Pt given tour of unit. Pt to give UDS, RN will obtain MRSA swab. Substance use history as follows: 1. Heroin, using 2-3 grams per day IV, using this amount x 4 months, last use 07/18/17 at 0700, used 2 gm IV. 2.Meth, using 1 gm IV per day, using this amount x 4 months, last use 07/17/17 at 2000, used 1 gm IV. 3.ETOH, drinks one fifth of vodka per day, using this amount x 4 months, last use 07/17/17 at 1000, drank one fifth of vodka. Denies psych history, denies having a psychiatrist although he is taking Seroquel and Clonidine. Weight 160 lb. Height 5 foot 11 inch. Bed in low position, side rails up x 2, call hancock within reach. Will continue to monitor. Addendum: 07/18/17 at 1936 by KAMI ANDERSON RN At 1630, COWS 5 and CIWA 4.
[2017-07-18 18:48] LABS: BASOPHILS % (AUTO) 0.7 % (0.0-2.0); EOSINOPHILS # (AUTO) 0.4 K/uL (0.0-0.7); EOSINOPHILS % (AUTO) 6.3 % (0.0-7.0); HEMATOCRIT 47.1 % (40-50); HEMOGLOBIN 15.9 G/DL (14.0-18.0); LYMPHOCYTES # (AUTO) 2.3 K/UL (0.8-4.8); LYMPHOCYTES % (AUTO) 36.7 % (20.5-51.5); MEAN CORPUSCULAR HEMOGLOBIN 29.5 UUG (27.0-31.0); MEAN CORPUSCULAR HGB CONC 34 g/dL (32.0-37.0); MEAN CORPUSCULAR VOLUME 87.6 FL (82.0-92.0); MONOCYTES # (AUTO) 0.5 K/UL (0.1-1.30); MONOCYTES % (AUTO) 8.6 % (0.0-11.0); NEUTROPHILS # (AUTO) 3.1 K/UL (1.8-8.9); NEUTROPHILS % (AUTO) 47.7 % (38.5-71.5); PLATELET COUNT (AUTO) 227 K/UL (150-450); RED BLOOD CELL COUNT(AUTO) 5.38 MIL/UL (4.7-6.1); WHITE BLOOD COUNT (AUTO) 6.3 K/UL (4.0-11.2)
--- NOTE | 2017-07-18 19:00 | NUR ---
END OF SHIFT NOTE 27 year old male admitted to [facility] on 07/18/17 at 1656 for Heroin, Meth and ETOH dependence and medically supervised detox. History of inpatient detox/rehab 4 months ago. No history of seizure. No medical history other than patient states he may have had MRSA in the past, MRSA swab done. UDS sent. K 3.0, Dr. Toussaint notified. Home medications brought up by intake at 1850. Endorsed to night RN to follow up with home medication review, signature and med reconciliation. Last COWS 5, CIWA 4 at 1630. Report given to night RN. Bed in low position, side rails up x 2, call hancock within reach.
[2017-07-18 19:01] LABS: ALANINE AMINOTRANSFERASE 66 U/L (16-63); ALKALINE PHOSPHATASE 83 U/L (50-136); ASPARTATE AMINOTRANSFERASE 25 U/L (15-37); BILIRUBIN,TOTAL 0.6 mg/dL (0.2-1.0); CARBON DIOXIDE 35 mmol/L (21-32); CHLORIDE 101 mmol/L (98-107); CREATININE 1.1 mg/dL (0.6-1.3); GLUCOSE 70 mg/dL (74-106); MAGNESIUM 1.9 mg/dL (1.8-2.4); TOTAL PROTEIN, SERUM 7.3 g/dL (6.4-8.2); UREA NITROGEN, BLOOD 9 mg/dL (7-18)
[2017-07-18 19:03] LABS: ETHANOL < 3 MG/DL (0-0)
[2017-07-18] MEDS ORDERED: POTASSIUM CHLORIDE 20 MEQ TAB.PRT.SR PO ONE ×2 (19:15→21:00)
--- NOTE | 2017-07-18 19:15 | NUR ---
START OF SHIFT NOTE : Pt. is 27 year old male, admitted to [facility] on 07/18/17 for Heroin, Meth and ETOH dependence and medically supervised detox. No history of seizure. No medical history other than patient states he may have had MRSA in the past, MRSA swab done. Pt. is resting in the bed, complains of weakness, mild body ache. Last COWS 5, CIWA 4 at 1900. Safety measures in place : bed on lowest position with side rails x2 up for safety, call light within reach. Will continue to monitor closely and offer help.
[2017-07-18 19:23] LABS: *AMPHETAMINE, URINE POSITIVE (NEGATIVE); *BARBITURATE, URINE NEGATIVE (NEGATIVE); *CANNABINOID, URINE NEGATIVE (NEGATIVE); *COCCAINE, URINE NEGATIVE (NEGATIVE); *OPIATE, URINE POSITIVE (NEGATIVE); *PHENCYCLIDINE SCREEN,URINE NEGATIVE (NEGATIVE)
[2017-07-18 20:00] VITALS: BP 111/70
[2017-07-18] MEDS: GABAPENTIN 300 MG CAPSULE PO SCH (20:58)
[2017-07-18] MEDS ORDERED: GABAPENTIN 300 MG CAPSULE PO SCH (21:00)
[2017-07-18] MEDS ORDERED: LORAZEPAM 1 MG TABLET PO SCH (21:00)
[2017-07-18] MEDS ORDERED: ALBU8.5H8 IH (21:10)
[2017-07-18] MEDS ORDERED: QUET100T PO (21:12)
[2017-07-18] MEDS ORDERED: VARE1TAB PO (21:14)
[2017-07-19] VITALS: BP 92/62
--- NOTE | 2017-07-19 06:33 | NUR ---
END OF SHIFT NOTE : Pt. is 27 year old male, admitted to [facility] on 07/18/17 for Heroin, Meth and ETOH dependence and medically supervised detox. No history of seizure. No medical history other than patient states he may have had MRSA in the past, MRSA swab done. Pt remains compliant with the treatment plan. No PRNs were given during my shift. V/S remain WNL. RR=16, even and unlabored, lungs clear upon auscultation, abdomen soft and non- distended. Pt denies nausea, vomiting and diarrhea. CIWA and COWS taken when pt. was alert during the night, LAST CIWA=4 ,COWS=4 at 0400 , INTAKE= 1113 ml, voided x 2, slept 9 hours. Safety measures in place : bed on lowest position with side rails x2 up for safety, call light within reach. Will continue to monitor closely and offer help.
[2017-07-19 08:00] VITALS: BP 106/53
--- NOTE | 2017-07-19 08:00 | NUR ---
START OF SHIFT NOTE 27 year old male admitted on 07/18/17 for heroin, meth and ETOH dependence and for medical detox. History of asthma. PRN inhaler available as needed. No seizure history. On fall precautions. Full code status, on regular diet, NKA. History of detox/rehab inpatient treatment 4 months ago. History of heroin OD 5 months ago with one day acute inpatient stay. On Subutex and Ativan tapers. MRSA swab done on admission as Pt reported that he thought he may have had MRSA infection of wound in the past but was uncertain. Skin is intact. Has multiple scabs on face and arms due to picking. Received report from night RN. No PRN medications given during the night. Received one time dose K Dur 40 meq for K 3.0. On 0800 rounds, Pt sleeping but alert to verbal, oriented x 4. Bed in low position and locked, side rails up x 2, call light with in reach. Will continue to monitor.
[2017-07-19] MEDS: LORAZEPAM 1 MG TABLET PO SCH ×4 (08:20→20:50)
[2017-07-19] MEDS: GABAPENTIN 300 MG CAPSULE PO SCH ×3 (08:20→20:50)
--- NOTE | 2017-07-19 08:20 | NUR ---
SUBUTEX NON ADMINISTERED COWS 7. RN did not administer 0900 dose subutex.
[2017-07-19] MEDS: NEOMY/BACITRAC/POLYMI OINT 28.35 GM TUBE TOP SCH ×2 (08:21→16:57)
[2017-07-19] MEDS: BUPRENORPHINE HCL 2 MG TAB.SUBL SL SCH ×5 (08:24→20:50)
[2017-07-19] MEDS ORDERED: TUBERCULIN,PURIF.PROT.DERIV. 5 TU/0.1 ML TEST ID ONE (09:00)
[2017-07-19] MEDS ORDERED: ALBUTEROL SULFATE 2.5 MG/3 ML NEBU NEB PRN (09:30)
--- NOTE | 2017-07-19 10:32 | NUR ---
SUBUTEX ADMINISTERED Dr. Toussaint directed RN to administer the 0900 scheduled dose of Subutex. RN administered dose.
[2017-07-19 12:00] VITALS: BP 116/66
--- NOTE | 2017-07-19 14:37 | NUR ---
Therapist prompted client to come to group. Client shall attend once he is feeling up to it.
[2017-07-19 16:00] VITALS: BP 124/59
[2017-07-19] MEDS: ESCITALOPRAM OXALATE 10 MG TABLET PO SCH (16:05)
--- NOTE | 2017-07-19 19:00 | NUR ---
END OF SHIFT NOTE 27 year old male admitted on 07/18/17 for heroin, meth and ETOH dependence and for medical detox. History of asthma. PRN inhaler available as needed. No seizure history. On fall precautions. Full code status, on regular diet, NKA. History of detox/rehab inpatient treatment 4 months ago. History of heroin OD 5 months ago with one day acute inpatient stay. On Subutex and Ativan tapers. Skin is intact. Has multiple scabs on face and arms due to picking. Last COWS 4 and CIWA 3 at 1645. Pt drowsy, sleeping often. Eating 100-50 percent of meals. Fluid intake 1510 ml. Void x 3, stool x 1. Report given to night RN. Bed in low position and locked, side rails up x 2, call light within reach.
--- NOTE | 2017-07-19 19:00 | NUR ---
START OF SHIFT NOTE: Patient is a 27 year old male admitted to [facility] on 07/18/2017 for Alcohol. Opioid, and Methamphetamine dependence. Patient is continuing 5 Day Ativan and 5 Day Subutex Taper. Patient is tolerating well without ASE. Patient remains compliant with treatment, medications, and diet regime. Patient reports NKA, is on Full Code, Regular Diet, Fall and Seizures Precautions. Patient denies Seizures History. PMH: Patient denies PMH. Patient reports Substance use History: "Heroin via IV 2-3 gram every day during last 4 months. Last used 2 grams via IV on 07/18/2017 at 0700". "Methamphetamine 1 gram every day during last 4 months. Last used gram via IV on 07/18/2017 at 0700". "ETOH/Alcohol: Fifth of Vodka last 4 months. Last used Fifth of Vodka on 07/17/2017 at 0700". Upon endorsement patient is in his room alert and oriented x4, with stable gait. Speech is soft and clear. COWS 5, CIWA 5. VSWNL. Respirations unlabored and even. Lungs Sounds are clear thoroughly. Abdomen is soft, non-tender. Bowels Sounds presents in all x4 quadrants. Skin is warm, and dry. Patient has scabs on face and arms r/t picking. Encouraged to fluids intake as tolerated. Encouraged to attending groups activities. All needs met. Safety measures in place: Call light within reach, bed locked, and in lowest position, padded bed rails up bilaterally. Patient endorsed by day shift nurse, report received. Addendum: 07/21/17 at 2310 by ELE BERKOWITZ RN PMH: Hepatitis C, Substance use History, Chronic Tobacco Use.
[2017-07-19 20:00] VITALS: BP 131/77
[2017-07-19] MEDS: QUETIAPINE FUMARATE 100 MG TABLET PO SCH (20:50)
[2017-07-20] VITALS: BP 118/64
[2017-07-20 04:00] VITALS: BP 96/44
--- NOTE | 2017-07-20 06:54 | NUR ---
END OF SHIFT NOTE: Patient is a 27 year old male admitted to [facility] on 07/18/2017 for Alcohol. Opioid, and Methamphetamine dependence. Patient is continuing 5 Day Ativan and 5 Day Subutex Taper. Patient is tolerating well without ASE. Patient remains compliant with treatment, medications, and diet regime. Patient reports NKA, is on Full Code, Regular Diet, Fall and Seizures Precautions. Patient denies Seizures History. PMH: Patient denies PMH. Patient reports Substance use History: "Heroin via IV 2-3 gram every day during last 4 months. Last used 2 grams via IV on 07/18/2017 at 0700". "Methamphetamine 1 gram every day during last 4 months. Last used gram via IV on 07/18/2017 at 0700". "ETOH/Alcohol: Fifth of Vodka last 4 months. Last used Fifth of Vodka on 07/17/2017 at 0700". COWS 6, CIWA 3 @0400. COWS/CIWA taken when patient's awake during night. Last VS @0400: T: 98.0, BP: 96/44, HR: 63, RR:16, RA O2Sat: 95%, pain level: "0/10". Patient denies SI/HI. Respirations unlabored and even. Skin is warm, and dry. Patient has scabs on face and arms r/t picking. Patient slept 9 hours, intake 500 ml, voided x1. No PRN Medications administrated during mini shifter. Encouraged fluids intake as tolerated. Encouraged to attend groups activities. All needs met. Safety measures on place. Call light within reach, bed in lowest position and locked, padded rails up bilaterally. Patient endorsed to day shift nurse. Report given. Addendum: 07/21/17 at 2310 by ELE BERKOWITZ RN PMH: Hepatitis C, Substance use History, Chronic Tobacco Use.
[2017-07-20 07:06] LABS: HEPATITIS B SURFACE AG Negative (Negative)
--- NOTE | 2017-07-20 07:23 | NUR ---
START OF SHIFT Received report from parachute line tier nurse. 27 year old female patient admitted on 07/18/17 for ETOH, Heroin and Methamphetamine withdrawals. Pt s/s of withdrawals are being managed with ordered taper medications and patient is tolerating well. Pt lab is positive for Hep C. remains full code, regular diet and denies allergies. Pt slept for 9 hours and is resting in bed at this time. V/S remain WNL, RR even and unlabored. Most recent CIWA is 3 and COWS is 6 at 0400. No PRN medications needed or administered at night. Safety measures are in place, will continue to monitor.
[2017-07-20 08:04] VITALS: BP 114/71
[2017-07-20] MEDS: IBUPROFEN 600 MG TABLET PO PRN (08:49)
[2017-07-20] MEDS: BUPRENORPHINE HCL 2 MG TAB.SUBL SL SCH ×3 (08:49→20:34)
[2017-07-20] MEDS: ESCITALOPRAM OXALATE 10 MG TABLET PO SCH (08:49)
[2017-07-20] MEDS: NEOMY/BACITRAC/POLYMI OINT 28.35 GM TUBE TOP SCH ×2 (08:49→16:49)
[2017-07-20] MEDS: LORAZEPAM 1 MG TABLET PO SCH ×3 (08:49→20:32)
[2017-07-20] MEDS: GABAPENTIN 300 MG CAPSULE PO SCH (08:49)
--- NOTE | 2017-07-20 08:51 | NUR ---
PRN MOTRIN Pt c/o 5/10 aches on right leg related to injury prior to admission. Pt encouraged to rest leg, wheelchair near bed if needed. Pt encouraged to use call light for further assistance. PRN Motrin 600mg administered as ordered. Will reassess.
--- NOTE | 2017-07-20 09:51 | NUR ---
REASSESSMENT Pt states pain level is now 4/10, will notify nurse if pain is persistent. Pt states he is able to tolerate it now, pillows offered for elevation and comfort.
--- NOTE | 2017-07-20 10:17 | NUR ---
Therapist prompted client about group times. Client stated he is not going to attend groups today because he wants to rest.
[2017-07-20] MEDS ORDERED: LORAZEPAM 1 MG TABLET PO ONE (10:30)
[2017-07-20] MEDS ORDERED: BUPRENORPHINE HCL 2 MG TAB.SUBL SL ONE (10:30)
--- NOTE | 2017-07-20 10:50 | NUR ---
ONE TIME ATIVAN/ONE TIME SUBUTEX ORDERED Dr. Toussaint ordered Subutex 2mg, and Ativan 2mg one time. COWS 9, CIWA 7, medications administered as ordered, will reassess.
--- NOTE | 2017-07-20 12:12 | NUR ---
REASSESSMENT Pt states the medications were effective. COWS 7 and CIWA 5 at this time. Pt encouraged to rest and verbalize to nurse if all needs are not met.
[2017-07-20 12:13] VITALS: BP 111/64
[2017-07-20] MEDS ORDERED: INFLUENZA VACCINE 2017-2018 0.5 ML DISP.SYRIN IM ONE (15:00)
[2017-07-20] MEDS ORDERED: PNEUMOCOCCAL 23-VAL P-SAC VAC 0.5 ML VIAL IM ONE (15:00)
[2017-07-20] MEDS: GABAPENTIN 400 MG CAPSULE PO SCH ×2 (15:22→20:33)
[2017-07-20] MEDS: BACLOFEN 10 MG TABLET PO SCH ×2 (15:22→20:33)
[2017-07-20 16:44] VITALS: BP 124/72
--- NOTE | 2017-07-20 18:41 | NUR ---
END OF SHIFT Patient continues on Ativan and Subutex taper and is tolerating well. Pt encouraged to attend groups and activities but states he wants to rest today and will try tomorrow. Pt continues to have right leg pain related to injury prior to admission and uses wheelchair as needed, assistance provided. V/S remain WNL. PRN Motrin, One time Ativan 2mg, one time Subutex 2mg administered and effective. Pt reports adequate caloric and fluid intake. No BM noted. Most recent COWS at 1700 is 7, and CIWA is 5. Pt is in bed at this time, RR even and unlabored. All needs met, night nurse to continue monitoring.
--- NOTE | 2017-07-20 18:41 | NUR ---
START OF SHIFT NOTE: Patient is a 27 year old male admitted to [facility] on 07/18/2017 for Alcohol. Opioid, and Methamphetamine dependence, continues 5 Day Ativan and 5 Day Subutex Taper. Patient is tolerating well without ASE. Patient remains compliant with treatment, medications, and diet regime. Patient reports NKA, is on Full Code, Regular Diet, Fall and Seizures Precautions. Patient denies Seizures History. Patient denies PMH. Substance use History: "Heroin via IV 2-3 gram every day during last 4 months. Last used 2 grams via IV on 07/18/2017 at 0700". "Methamphetamine 1 gram every day last 4 months. Last used gram via IV on 07/18/2017 at 0700". "ETOH/Alcohol: Fifth of Vodka last 4 months. Last used Fifth of Vodka on 07/17/2017 at 0700". Patient is in his room alert and oriented x4 with stable gait. Speech is soft and clear. COWS 7, CIWA 5. VSWNL. Respirations unlabored and even. Lungs Sounds are clear thoroughly. Abdomen is soft, non-tender. Bowels Sounds presents in all x4 quadrants. Skin is warm, and dry. Patient's scabs on face and arms r/t picking. Encouraged to fluids intake as tolerated. Encouraged to attend groups activities. All needs met. Safety measures in place: Call light within reach, bed locked, in lowest position with padded bed rails up bilaterally. Patient endorsed by day shift nurse, report received. Addendum: 07/21/17 at 2309 by ELE BERKOWITZ RN PMH: Hepatitis C, Substance use History, Chronic Tobacco Use.
[2017-07-20 20:00] VITALS: BP 114/73
[2017-07-20] MEDS: QUETIAPINE FUMARATE 100 MG TABLET PO SCH (20:33)
[2017-07-20] MEDS: CLONIDINE HCL 0.1 MG TABLET PO SCH (20:33)
[2017-07-21] VITALS: BP 112/55
[2017-07-21 04:00] VITALS: BP_SYST 122; BP_DIAS 58; BP_DIAS 67
--- NOTE | 2017-07-21 07:00 | NUR ---
END OF SHIFT NOTE: Patient is a 27 year old male admitted to [facility] on 07/18/2017 for Alcohol. Opioid, and Methamphetamine dependence. Patient is continuing 5 Day Ativan and 5 Day Subutex Taper. Patient is tolerating well without ASE. Patient remains compliant with treatment, medications, and diet regime. Patient reports NKA, is on Full Code, Regular Diet, Fall and Seizures Precautions. Patient denies Seizures History. PMH: Patient denies PMH. Last COWS 6, CIWA 4 @0400. COWS/CIWA taken when patient's awake during night. Last VS @0400: T: 98.0, BP: 122/67, HR: 75, RR:16, RA O2Sat: 100%, pain level: "0/10". Patient denies SI/HI. Respirations unlabored and even. Skin is warm, and dry. Patient has scabs on face and arms r/t picking. Patient slept 8 hours, intake 500 ml, voided x3, stool x1. No PRN Medications administrated during rn night. Encouraged fluids intake as tolerated. Encouraged to attend groups activities. All needs met. Safety measures on place. Call light within reach, bed in lowest position and locked, padded rails up bilaterally. Patient endorsed to day shift nurse. Report given. Addendum: 07/21/17 at 2309 by ELE BERKOWITZ RN PMH: Hepatitis C, Substance use History, Chronic Tobacco Use.
--- NOTE | 2017-07-21 07:49 | NUR ---
Start of shift note; Received report from night nurse.Patient is a 27 year old male admitted on 07/18/17 for Opiate/ Meth/ ETOH. Patient was placed on Ativan and Subutex tapers, no adverse reactions noted. Patient is on full code status, on regular diet, NKA. Patient reported history of Hepatitis C. Patient's last CIWA is 4 and last COWS is 6. Patient's slept for 6 hours. No PRN medication given per night nurse. Patient is on fall and seizure precaution. Will continue to monitor patient.
[2017-07-21 08:00] VITALS: BP 126/72
[2017-07-21] MEDS: CLONIDINE HCL 0.1 MG TABLET PO SCH ×3 (08:44→20:40)
[2017-07-21] MEDS: ESCITALOPRAM OXALATE 10 MG TABLET PO SCH (08:44)
[2017-07-21] MEDS: LORAZEPAM 1 MG TABLET PO SCH ×2 (08:44→12:53)
[2017-07-21] MEDS: BACLOFEN 10 MG TABLET PO SCH (08:45)
[2017-07-21] MEDS: NEOMY/BACITRAC/POLYMI OINT 28.35 GM TUBE TOP SCH ×2 (08:45→17:00)
[2017-07-21] MEDS: GABAPENTIN 400 MG CAPSULE PO SCH (08:45)
[2017-07-21] MEDS ORDERED: BUPRENORPHINE HCL 2 MG TAB.SUBL SL SCH ×2 (09:00→15:00)
[2017-07-21 12:00] VITALS: BP 116/63
[2017-07-21] MEDS ORDERED: KETOROLAC TROMETHAMINE 30 MG INJ IM PRN (13:00)
[2017-07-21] MEDS: BUPRENORPHINE HCL 2 MG TAB.SUBL SL SCH ×3 (13:24→20:40)
[2017-07-21] MEDS: BACLOFEN 20 MG TABLET PO SCH ×2 (14:49→20:40)
[2017-07-21] MEDS: GABAPENTIN 300 MG CAPSULE PO SCH ×2 (14:49→20:39)
[2017-07-21] MEDS: IBUPROFEN 600 MG TABLET PO PRN (14:52)
--- NOTE | 2017-07-21 14:52 | NUR ---
PRN medication; Patient is complaining of generalized pain/ headache rated 6/10. PRN Motrin 600mg PO given for pain. Will continue to monitor patient.
--- NOTE | 2017-07-21 15:52 | NUR ---
Re-assessment; Patient denies pain at this time. PRN medication is effective.
[2017-07-21 16:00] VITALS: BP 134/69
--- NOTE | 2017-07-21 16:00 | NUR ---
XR result MD ordered XR for tibia and fibula d/t pain related to injury prior to admission. XR resulted. There is normal mineralization and alignment. No fracture or osseous lesion is identified. The joints are unremarkable. There are normal soft tissues without evidence of soft tissue swelling. MD notified.
[2017-07-21] MEDS ORDERED: LORAZEPAM 1 MG TABLET PO SCH ×2 (17:00→21:00)
--- NOTE | 2017-07-21 18:26 | NUR ---
End of shift note; Patient is AOX4. Patient is a 27 year old male admitted on 07/18/17 for Opiate/ Meth/ ETOH. Patient was placed on Ativan and Subutex tapers, no adverse reactions noted. Patient is on full code status, on regular diet, NKA. Patient reported history of Hepatitis C. Patient's last CIWA is 4 and last COWS is 4. Patient remained compliant with treatment plan and medication regime. Medications were effective in reducing withdrawal symptoms. All safety emasures secured. Met all needs.
--- NOTE | 2017-07-21 18:26 | NUR ---
START OF SHIFT NOTE: Patient is a 27 year old male admitted to [facility] on 07/18/2017 for Alcohol. Opioid, and Methamphetamine dependence, continues 5 Day Ativan and 5 Day Subutex Taper. Patient is tolerating well without ASE. Patient remains compliant with treatment, medications, and diet regime. Patient reports NKA, is on Full Code, Regular Diet, Fall and Seizures Precautions. Patient denies Seizures History. PMH: Hepatitis C, Substance use History, Chronic Tobacco Use. Patient reports Substance Use History: "Heroin via IV 2-3 gram every day during last 4 months. Last used 2 grams via IV on 07/18/2017 at 0700". "Methamphetamine 1 gram every day last 4 months. Last used gram via IV on 07/18/2017 at 0700". "ETOH/Alcohol: Fifth of Vodka last 4 months. Last used Fifth of Vodka on 07/17/2017 at 0700". Patient is in his room alert and oriented x4 with stable gait. Speech is soft and clear. COWS 6, CIWA 5. VSWNL. Respirations unlabored and even. Lungs Sounds are clear thoroughly. Abdomen is soft, non-tender. Bowels Sounds presents in all x4 quadrants. Skin is warm, and dry to touch. Patient's scabs on face and arms r/t picking. Encouraged to fluids intake as tolerated. Patient attending groups activities. All needs met. Safety measures in place: Call light within reach, bed locked, in lowest position with padded bed rails up bilaterally. Patient endorsed by day shift nurse, report received.
[2017-07-21 20:00] VITALS: BP 135/79
[2017-07-21] MEDS: QUETIAPINE FUMARATE 100 MG TABLET PO SCH (20:40)
[2017-07-22] VITALS: BP 112/55
[2017-07-22 04:00] VITALS: BP 96/60
--- NOTE | 2017-07-22 07:04 | NUR ---
END OF SHIFT NOTE: Patient is a 27 year old male admitted to [facility] on 07/18/2017 for Alcohol. Opioid, and Methamphetamine dependence. Patient is continuing 5 Day Ativan and 5 Day Subutex Taper. Patient is tolerating well without ASE. Patient remains compliant with treatment, medications, and diet regime. Patient reports NKA, is on Full Code, Regular Diet, Fall and Seizures Precautions. Patient denies Seizures History. PMH: Patient denies PMH. Last COWS 6, CIWA 5 @0400. COWS/CIWA taken when patient's awake during night. Last VS @0400: T: 98.3, BP: 96/60, HR: 72, RR:18, RA O2Sat: 97%, pain level: "0/10". Patient denies SI/HI. Respirations unlabored and even. Skin is warm, and dry. Patient has scabs on face and arms r/t picking. Patient slept 6 hours, intake 974 ml, voided x1. No PRN Medications administrated during mini shifter. Encouraged fluids intake as tolerated. Encouraged to attend groups activities. All needs met. Safety measures on place. Call light within reach, bed in lowest position and locked, padded rails up bilaterally. Patient endorsed to day shift nurse. Report given.
--- NOTE | 2017-07-22 07:56 | NUR ---
Start of shift note; Received report from night nurse.Patient is a 27 year old male admitted on 07/18/17 for Opiate/ Meth/ ETOH. Patient was placed on Ativan and Subutex tapers, no adverse reactions noted. Patient is on full code status, on regular diet, NKA. Patient reported history of Hepatitis C. Patient's slept for 6 hours. No PRN medication given per night nurse. Patient is on fall and seizure precaution. Will continue to monitor patient.
[2017-07-22 08:00] VITALS: BP 109/70
[2017-07-22] MEDS: BUPRENORPHINE HCL 2 MG TAB.SUBL SL SCH ×2 (08:26→14:30)
[2017-07-22] MEDS: GABAPENTIN 300 MG CAPSULE PO SCH ×2 (08:26→14:29)
[2017-07-22] MEDS: ESCITALOPRAM OXALATE 10 MG TABLET PO SCH (08:27)
[2017-07-22] MEDS: NEOMY/BACITRAC/POLYMI OINT 28.35 GM TUBE TOP SCH ×2 (08:27→16:07)
[2017-07-22] MEDS: LORAZEPAM 1 MG TABLET PO SCH ×2 (08:27→14:30)
[2017-07-22] MEDS: CLONIDINE HCL 0.1 MG TABLET PO SCH (08:27)
[2017-07-22] MEDS: BACLOFEN 20 MG TABLET PO SCH ×2 (08:27→14:29)
[2017-07-22 12:00] VITALS: BP 127/76
[2017-07-22] MEDS: IBUPROFEN 600 MG TABLET PO PRN (12:28)
--- NOTE | 2017-07-22 12:34 | NUR ---
PRN medication; Patient is AOX4, complaining of generalized pain/headache. PRN Motrin 600 mg PO given for pain rated 5/10. Will continue to monitor for effectiveness of medication.
[2017-07-22] MEDS ORDERED: BUPRENORPHINE HCL 2 MG TAB.SUBL SL ONE (13:00)
--- NOTE | 2017-07-22 13:20 | NUR ---
Subutex one time dose; ordered Subutex 4mg SL one time d/t withdrawal symptoms with current COWS score of 7. Will closely monitor patient for effectiveness
--- NOTE | 2017-07-22 13:34 | NUR ---
Re-assessment; Patient denies pain at this time. PRN medication noted to be effective.
--- NOTE | 2017-07-22 13:50 | NUR ---
Re-assessment; Patient is AOX4. Patient's COWS score decreased to 4 from 7. Subutex dose is effective.
--- NOTE | 2017-07-22 14:18 | NUR ---
Therapist prompted client to attend daily group sessions. Client stated that he would consider attending, but did not give a definitive answer.
[2017-07-22] MEDS ORDERED: CLONIDINE HCL 0.1 MG TABLET PO SCH (15:00)
--- NOTE | 2017-07-22 15:30 | NUR ---
Patient and MD communication; Patient reported that he wants to leave AMA, educated patient regarding the risks of leaving AMA. MD was notified, and patient was counseled. Patient decided to stay at this time. Will closely monitor patient.
[2017-07-22 16:00] VITALS: BP 119/70
--- NOTE | 2017-07-22 18:06 | NUR ---
End of shift note; Patient is AOX4. Patient is a 27 year old male admitted on 07/18/17 for Opiate/ Meth/ ETOH. Patient was placed on Ativan and Subutex tapers, no adverse reactions noted. Patient is on full code status, on regular diet, NKA. Patient reported history of Hepatitis C. Patient's last CIWA is 4 and last COWS is 4. Patient remained compliant with treatment plan and medication regime. Medications were effective in reducing withdrawal symptoms. All safety measures secured. Met all needs.
--- NOTE | 2017-07-22 18:52 | NUR ---
AMA note; Patient is AOX4. Patient decided to leave AMA. Attempted to convince patient to stay and complete his treatment but was unsuccessful. Patient was educated by MD regarding risks of leaving AMA, patient verbalized understanding. All patient's belongings and valuables returned to patient. Patient was escorted out of the hospital. Patient left in a stable condition.
[2017-07-22] MEDS ORDERED: CLONIDINE HCL 0.2 MG TABLET PO SCH (21:00)
[2017-07-23] MEDS ORDERED: LORAZEPAM 1 MG TABLET PO SCH (09:00)
[2017-07-23] MEDS ORDERED: BUPRENORPHINE HCL 2 MG TAB.SUBL SL SCH (09:00)
[2017-07-24] MEDS ORDERED: LORAZEPAM 1 MG TABLET PO SCH (09:00)
[2017-07-24] MEDS ORDERED: BUPRENORPHINE HCL 2 MG TAB.SUBL SL SCH (09:00)
== END 2017-07-22 18:47 | disposition left against medical advice (07) | DRG 894 ==
LOC: SRC 16:22
PROVIDERS: ADMIT Internal Medicine; ATTEND Internal Medicine
PROC: HZ2ZZZZ Detoxification Services for Substance Abuse Treatment (ICD-10-PCS; principal; 2017-07-18)
PROC: HZ31ZZZ Individual Counseling for Substance Abuse Treatment, Behavioral (ICD-10-PCS; 2017-07-20)
DX: F10.232 Alcohol dependence with withdrawal with perceptual disturbance (principal); E87.3 Alkalosis; F33.1 Major depressive disorder, recurrent, moderate; F15.23 Other stimulant dependence with withdrawal; F13.10 Sedative, hypnotic or anxiolytic abuse, uncomplicated; F17.210 Nicotine dependence, cigarettes, uncomplicated; B18.2 Chronic viral hepatitis C; E87.6 Hypokalemia; F11.23 Opioid dependence with withdrawal; Y90.9 Presence of alcohol in blood, level not specified; Z79.899 Other long term (current) drug therapy; L08.9 Local infection of the skin and subcutaneous tissue, unspecified; F14.21 Cocaine dependence, in remission; E86.0 Dehydration; M79.604 Pain in right leg
CPT/HCPCS: 36415; 73590; 80307; 80324; 80346; 80361; 83735; 85025; 86580; 86592; 86705; 86803; 87340; 87806; 90686; 90732; A4663; G0480